=== PATIENT | female | born 1955 | race Caucasian/White ===

== ENCOUNTER 2018-02-04 07:25 | Day surgery (SDC) | payer BC, SELFPAY ==
[2018-02-04 07:45] VITALS: BP 116/65; PULSE 68; RESP 16; TEMP 36.5; O2SAT 100
[2018-02-04] MEDS: Lactated Ringers 1,000 ML 80 ML IV (08:00)
--- NOTE | 2018-02-04 08:52 | W.PM.DSUDISC ---
Discharge Plan Discharge Details Reason For Visit: SCREENING Attending Provider: Celia Will Primary Care Provider: Alyssa Cramer Disposition Patient Disposition: HOME Condition: Good Home Meds and New Rx's Prescriptions: Continue levothyroxine [Synthroid] 88 MCG tablet 88 mcg PO DAILY RF: 0 aspirin 81 MG tablet,chewable 81 mg PO DAILY RF: 0 albuterol sulfate [ProAir HFA] 8.5 GM HFA aerosol inhaler 1 puff Inhalation Q6H PRN RF: 0 Discontinued bisacodyl [Bisa-Lax] 5 MG tablet,delayed release (DR/EC) 5 mg PO as directed Qty: 4 RF: 0 polyethylene glycol 3350 255 GM powder 255 gm PO as directed for colo Qty: 255 RF: 0 Discharge Instructions Instructions: Colonoscopy (DC), Diverticulosis (DC) Additional Instructions: Findings: Diverticulosis Follow up: 10 years Diet: High fiber diet New Medications: none Please call or return to the ED if you develop: fevers >101.5 Nausea or Vomiting abdominal pain that is not transient DAY SURGERY UNIT POST COLONOSCOPY INSTRUCTIONS 1. Because there will be medication in your system for the next 24 hours, you may feel a little sleepy. Your coordination will be affected. Therefore: a. Do not drive or operate dangerous equipment for 24 hours. b. Do not drink alcohol beverages for 24 hours (not even beer). c. Plan to go home and rest for the day. 2. Generally there are no restrictions on your activity after a day or so has gone by, but you may feel a bit fatigued for a few days. 3 After you arrive home you may have a light meal and return to a normal diet as you can tolerate it without feeling sick to your stomach. 4. After surgery, you may feel pain or discomfort. This should be only transient, but if it persists please contact your doctor. 5. If there are any questions regarding the findings of your procedure, please feel free to contact your doctor. 6. If you are unable to contact your doctor with a problem, contact the ospital at [phone]. 7. Continue all your regular medications unless directed otherwise. I understand the above instructions and have no questions. Signature of Patient or Responsible Adult Escort Date/Time Name of Responsible Adult Escort Signature of Nurse Date/Time Activity:: Activity as Tolerated Diet:: As Tolerated
--- NOTE | 2018-02-04 08:57 | PDOC.DSDIS_ITS ---
Discharge Plan Discharge Details Reason For Visit: SCREENING Attending Provider: Celia Will Primary Care Provider: Alyssa Cramer Disposition Patient Disposition: HOME Condition: Good Home Meds and New Rx's Prescriptions: Continue levothyroxine [Synthroid] 88 MCG tablet 88 mcg PO DAILY RF: 0 aspirin 81 MG tablet,chewable 81 mg PO DAILY RF: 0 albuterol sulfate [ProAir HFA] 8.5 GM HFA aerosol inhaler 1 puff Inhalation Q6H PRN RF: 0 Discontinued bisacodyl [Bisa-Lax] 5 MG tablet,delayed release (DR/EC) 5 mg PO as directed Qty: 4 RF: 0 polyethylene glycol 3350 255 GM powder 255 gm PO as directed for colo Qty: 255 RF: 0 Discharge Instructions Instructions: Colonoscopy (DC), Diverticulosis (DC) Additional Instructions: Findings: Diverticulosis Follow up: 10 years Diet: High fiber diet New Medications: none Please call or return to the ED if you develop: fevers >101.5 Nausea or Vomiting abdominal pain that is not transient DAY SURGERY UNIT POST COLONOSCOPY INSTRUCTIONS 1. Because there will be medication in your system for the next 24 hours, you may feel a little sleepy. Your coordination will be affected. Therefore: a. Do not drive or operate dangerous equipment for 24 hours. b. Do not drink alcohol beverages for 24 hours (not even beer). c. Plan to go home and rest for the day. 2. Generally there are no restrictions on your activity after a day or so has gone by, but you may feel a bit fatigued for a few days. 3 After you arrive home you may have a light meal and return to a normal diet as you can tolerate it without feeling sick to your stomach. 4. After surgery, you may feel pain or discomfort. This should be only transient , but if it persists please contact your doctor. 5. If there are any questions regarding the findings of your procedure, please feel free to contact your doctor. 6. If you are unable to contact your doctor with a problem, contact the ospital at [phone]. 7. Continue all your regular medications unless directed otherwise. I understand the above instructions and have no questions. Signature of Patient or Responsible Adult Escort Date/Time Name of Responsible Adult Escort Signature of Nurse Date/Time Activity:: Activity as Tolerated Diet:: As Tolerated
--- NOTE | 2018-02-04 08:57 | W.COLOREPORT ---
Colonoscopy Report Date of procedure: 02/04/18 Pre-op diagnosis general: screening colonoscopy Post-op diagnosis procedure note: same Procedure: Colonoscopy Anesthesia proc note operative: MAC Estimated blood loss (mL): 0 Pathology: none sent Complications: None Disposition: same day Indications: Screening for colon cancer. Last colonoscopy was normal 10 years ago Prep: Miralax Procedure Start Time: 08:27 Procedure End Time: 08:47 Findings: Moderate Diverticulosis otherwise normal colonoscopy Procedure Description: Consent was obtained patient was taken to the procedure room. Monitors were applied and she was placed in she was placed in a left decubitous position. A time out was done. The patients name, date of , allergies to medications and metal in her body were reviewed. The patient was sedated and once comfortable a rectal exam was done. External exam was normal. Internal exam revealed normal sphincter tone and no palpable masses. The colonoscope was introduced and retroflexed. No internal hemorrhoids were noted. The scope was straightened and advanced to the cecum without difficulty. The TI and appendeceal orifice were identified. The scope was then retracted over 11 minutes back into the rectum. Moderate diverticulosis was noted from the transverse colon to the sigmoid colon. The colonoscope was removed and the patient was woken up and taken back to [facility] in stable condition.
[2018-02-04 09:34] VITALS: BP 115/69; PULSE 48; RESP 16; TEMP 36; O2SAT 100
== END 2018-02-04 09:54 | disposition home or self-care (01) ==
PROVIDERS: PCP Nurse Practitioner Family; Visit Provider Surgery
PROC: 0DJD8ZZ Inspection of Lower Intestinal Tract, Via Natural or Artificial Opening Endoscopic (ICD-10-PCS; CPT 45378; principal; 2018-02-04 08:20)
DX: Z12.11 Encounter for screening for malignant neoplasm of colon (principal); K57.30 Diverticulosis of large intestine without perforation or abscess without bleeding
CPT/HCPCS: 45378

== ENCOUNTER 2018-12-29 10:00 | Outpatient (REF) | payer MEDICARE, BC, SELFPAY ==
[2018-12-29 20:01] LABS: ALT 33 U/L (12-78); AST 23 U/L (15-37); Albumin 3.7 g/dL (3.4-5.0); Alkaline Phosphatase 81 U/L (46-116); Anion Gap 16.1 mmol/L (3-11); BUN 14 mg/dL (7-18); Bilirubin, Total 0.4 mg/dL (0.2-1.0); CO2 25.9 mmol/L (21.0-32.0); CREATININE 0.83 mg/dL (0.55-1.02); Calcium 9.4 mg/dL (8.5-10.1); Chloride 100 mmol/L (98-107); Glucose 90 mg/dL (70-100); Potassium 4.1 mmol/L (3.5-5.1); Sodium 142 mmol/L (136-145); TSH (W/Ref FT4) 3.12 uIU/mL (0.36-3.74); Total Protein 7.2 g/dL (6.4-8.2)
[2018-12-29 20:06] LABS: HCT 40.4 % (36.0-46.0); HGB 13.7 g/dL (12.0-15.5); Mean Corp. HGB Concentration 33.9 g/dL (32.0-36.0); Mean Corpuscular Hemoglobin 29.8 pg (27.0-33.0); Mean Corpuscular Volume 87.8 fL (80-95); Platelet Count 277 x1000/uL (130-400); RBC Distribution Width 12.6 % (11.7-14.6); White Blood Cell Count 4.63 k/cumm (4.4-10.8)
[2018-12-29 20:58] LABS: Vitamin D 25 Total 33.2 ng/ml (30-100)
== END 2018-12-29 10:20 ==
LOC: NCHCN 10:00
PROVIDERS: PCP Nurse Practitioner Family; Visit Provider Nurse Practitioner Family
DX: E03.9 Hypothyroidism, unspecified (principal); R53.83 Other fatigue; E55.9 Vitamin D deficiency, unspecified
CPT/HCPCS: 80053; 82306; 85027; 84443

== ENCOUNTER 2019-02-09 14:12 | Outpatient (REF) | payer MEDICARE, SELFPAY ==
[2019-02-09 15:11] LABS: ALT 46 U/L (14-59); AST 31 U/L (15-37); Albumin 3.8 g/dL (3.4-5.0); Alkaline Phosphatase 93 U/L (46-116); Anion Gap 9.4 mmol/L (3-11); BUN 15 mg/dL (7-18); Bilirubin, Total 0.3 mg/dL (0.2-1.0); CO2 27.6 mmol/L (21.0-32.0); CREATININE 0.84 mg/dL (0.55-1.02); Calcium 9.5 mg/dL (8.5-10.1); Chloride 104 mmol/L (98-107); Glucose 93 mg/dL (70-100); Potassium 4.2 mmol/L (3.5-5.1); Sodium 141 mmol/L (136-145); Total Protein 7.4 g/dL (6.4-8.2)
== END 2019-02-09 14:32 ==
LOC: NCHCN 14:12
PROVIDERS: PCP Nurse Practitioner Family; Visit Provider Nurse Practitioner Family
DX: E78.5 Hyperlipidemia, unspecified (principal); M79.605 Pain in left leg
CPT/HCPCS: 80053

== ENCOUNTER 2019-03-02 00:55 | Outpatient (CLI) | payer MEDICARE, BC, SELFPAY ==
--- NOTE | 2019-03-02 16:01 | DI.MAMMO_ITS ---
EXAM: MAMMO SCREENING CLINICAL HISTORY: SCREENING, Z12.31, PREVENTATIVE HEALTH CARE, Z00.00. TECHNIQUE: Bilateral full field digital CC and MLO mammographic images were obtained with 3D tomosyn thesis and utilizing computer aided detection (CAD). COMPARISON: There are multiple priors with the most recent from 11/28/2017. FINDINGS: Masses/Architectural Distortion: None seen. There is asymmetric breast tissue seen in the posterior c entral left breast as identified on the mediolateral oblique view. This area should be further evalu ated with spot compression views and breast ultrasound. Microcalcifications: No suspicious pleomorphic-type are seen. Breast Density - Category B - Scattered areas of fibroglandular density IMPRESSION: 1. Asymmetric breast tissue in the posterior central left breast. Additional views of the left breas t are requested as described above. ACR BI-RAD Category- BI-RADS Cat 0 - Assessment Incomplete: Need additional imaging evaluation A negative radiographic report should not delay biopsy if a dominant or clinically suspicious mass is present. Up to ten percent of cancers are not identified on mammography. A negative report may reinforce clinical impression. Adenosis and dense breasts may obscure an underlying neoplasm. False positive reports average 6 to 10%.
--- NOTE | 2019-03-02 16:25 | DI.DEXA_ITS ---
EXAM: XR DEXA BONE DENSITY W/WO LELA INDICATION: PREVENTATIVE HEALTH CARE, Z00.00, POSTMENOPAUSAL, Z78.0. COMPARISON: DEXA BONE DENSITY WITH LELA from 03/22/2015 TECHNIQUE: 2D digital imaging was performed. FINDINGS: The image of the lateral spine shows no compression deformities. Evaluation of the left hip shows a total T-score of 0.3 and Z-score 1.6. This is within normal limits. This compares with a total T-sc ore of 0.6 from 03/22/2015. Evaluation of the lumbar spine shows a total T-score of 1.4 and Z-score 3.2. This is within normal l imits. This compares with a total T-score of 1.6 from 03/22/2015.. IMPRESSION: No evidence of osteoporosis.
== END 2019-03-02 01:15 ==
PROVIDERS: PCP Nurse Practitioner Family; Visit Provider Nurse Practitioner Family
DX: Z12.31 Encounter for screening mammogram for malignant neoplasm of breast (principal); R92.8 Other abnormal and inconclusive findings on diagnostic imaging of breast; Z13.820 Encounter for screening for osteoporosis; Z78.0 Asymptomatic menopausal state
CPT/HCPCS: 77063; 77067; 77080

== ENCOUNTER 2019-12-22 01:13 | Outpatient (CLI) | payer MEDICARE, BC, SELFPAY ==
--- NOTE | 2019-12-22 | DI.MAMMO_ITS ---
EXAM: MG MAMMO DIAGNOSTIC BI CLINICAL HISTORY: F/U ABNL MAMMO, R92.8 TECHNIQUE: Bilateral full field digital CC and MLO mammographic images were obtained with 3D tomosyn thesis and utilizing computer aided detection (CAD). COMPARISON: Available for comparison. FINDINGS: Masses/Architectural Distortion: None seen. Microcalcifications: No suspicious pleomorphic-type are seen. Skin Thickening/Nipple Retraction: None. IMPRESSION: 1. No significant interval change with no specific features of malignancy noted. 2. Unless there is more urgent need, screening mammography is recommended, as per [employer] guidelines. BI-RADS Category 1 - Negative Breast Density - Category B - Scattered areas of fibroglandular density The findings were discussed with the patient on the date of the examination. A negative radiographic report should not delay biopsy if a dominant or clinically suspicious mass is present. Up to ten percent of cancers are not identified on mammography. A negative report may reinforce clinical impression. Adenosis and dense breasts may obscure an underlying neoplasm. False positive reports average 6 to 10%. Patient will receive a letter notifying them of these results.
== END 2019-12-22 01:33 ==
PROVIDERS: PCP Nurse Practitioner Family; Visit Provider Nurse Practitioner Family
DX: R92.8 Other abnormal and inconclusive findings on diagnostic imaging of breast (principal)
CPT/HCPCS: 77062; 77066; G0279

== ENCOUNTER 2019-12-22 08:26 | Outpatient (REF) | payer MEDICARE, SELFPAY ==
[2019-12-22 14:36] LABS: HCT 42.9 % (36.0-46.0); HGB 14.3 g/dL (12.0-15.5); Mean Corp. HGB Concentration 33.3 g/dL (32.0-36.0); Mean Corpuscular Hemoglobin 29.6 pg (27.0-33.0); Mean Corpuscular Volume 88.8 fL (80-95); Mean Platelet Volume 10.6 fL (8.0-11.0); Platelet Count 291 x1000/uL (130-400); RBC 4.83 m/cumm (4.00-5.20); RBC Distribution Width 12.3 % (11.7-14.6); White Blood Cell Count 5.59 k/cumm (4.4-10.8)
[2019-12-22 14:49] LABS: ALT 24 U/L (14-59); AST 22 U/L (15-37); Albumin 3.8 g/dL (3.4-5.0); Alkaline Phosphatase 71 U/L (46-116); BUN 16 mg/dL (7-18); Bilirubin, Total 0.4 mg/dL (0.2-1.0); CREATININE 0.88 mg/dL (0.55-1.02); Calcium 9.2 mg/dL (8.5-10.1); Calculated LDL 88 mg/dL (<100); Chloride 106 mmol/L (98-107); Cholesterol 163 mg/dL (<200); Glucose 89 mg/dL (74-106); HDL Cholesterol 65 mg/dL (40-60); Potassium 4.3 mmol/L (3.5-5.1); Sodium 140 mmol/L (136-145); TSH (W/Ref FT4) 2.82 uIU/mL (0.36-3.74); Total Protein 7.1 g/dL (6.4-8.2); Triglyceride 53 mg/dL (<150)
== END 2019-12-22 08:46 ==
LOC: NCHCN 08:26
PROVIDERS: PCP Nurse Practitioner Family; Visit Provider Nurse Practitioner Family
DX: E03.9 Hypothyroidism, unspecified (principal); R53.83 Other fatigue; E78.5 Hyperlipidemia, unspecified
CPT/HCPCS: 80053; 80061; 85027; 84443